=== PATIENT | female | born 1980 | race Caucasian/White ===

== ENCOUNTER 2017-05-23 11:14 | Inpatient (IN) | payer SELFPAY ==
[2017-05-23] MEDS ORDERED: LACTATED RINGERS 1,000 ML ONE (12:14)
[2017-05-23] MEDS ORDERED: XYLOCAINE 2% INFILTRATI ONE (12:43)
[2017-05-23] MEDS ORDERED: BRETHINE SUB-Q PRN (12:43)
[2017-05-23] MEDS ORDERED: BRETHINE IVP PRN (12:43)
[2017-05-23] MEDS ORDERED: ePHEDrine SULFATE IV PRN ×2 (12:43→14:00)
[2017-05-23] MEDS ORDERED: MINERAL OIL PO PRN (12:43)
[2017-05-23 12:44] LABS: Basophils % (Auto) 0.3 % (0.0-1.8); Eosinophils % (Auto) 0.4 % (0.0-4.3); Hematocrit 32.5 % (30.3-42.9); Hemoglobin 10.4 gm/dl (10.1-14.3); Mean Corpuscular HGB Conc 32 % (30-34); Mean Corpuscular Volume 76 fl (79-97); Platelet Count 258 K/mm3 (140-440); Red Blood Count 4.29 M/mm3 (3.65-5.03); Red Cell Distribution Width 18.1 % (13.2-15.2); White Blood Count 9.5 K/mm3 (4.5-11.0)
[2017-05-23] MEDS ORDERED: PITOCin/NS 20 UNIT/1000ML DRIP 20 UNITS/1,000 ML BAG IV SCH (13:00)
[2017-05-23] MEDS ORDERED: LACTATED RINGERS 1,000 ML IV ONE (13:00)
[2017-05-23] MEDS ORDERED: SUBLIMAZE IV ONE (13:00)
[2017-05-23] MEDS ORDERED: LACTATED RINGERS 1,000 ML IV SCH (13:00)
[2017-05-23 13:05] LABS: Mean Corpuscular Hemoglobin 24 pg (28-32)
--- NOTE | 2017-05-23 13:40 | History and Physical Report ---
History of Present Illness Date of examination: 05/23/17 Date of admission: 05/23/17 12:20 Chief complaint: Painful regular contractions History of present illness: 36yo here with complaint of painful regular contractions since 10am. She denies LOF. Her is complicated by Advanced Maternal Age and Gestational Diabetes: diet-controlled. Her blood sugar on admission was 65. She has not had anything to eat since this AM. GBS neg. Past History Past Surgical History: no surgical history Family/Genetic History: diabetes (aunt), other (seizure disorder (mother)) Social history: - Obstetrical History Expected Date of Delivery: 05/28/17 Actual Gestation: 39 Week(s) 2 Day(s) : 5 Para: 2 Hx # Term Pregnancies: 2 Number of Pregnancies: 0 Spontaneous Abortions: 2 Induced : 0 Number of Living Children: 2 Medications and Allergies Allergies Allergy/AdvReac Type Severity Reaction Status Date / Time No Known Allergies Allergy Unverified 12/29/13 10:55 Home Medications Medication Instructions Recorded Confirmed Last Taken Type Vit-Fe Fumar-FA [ 1 tab PO QDAY 05/23/17 05/23/17 05/22/17 09: 00 History Vitamin] 1 Active Meds: Active Medications Ephedrine Sulfate (Ephedrine Sulfate) 10 mg IV Q2M PRN PRN Reason: Hypotension Lactated Ringer's (Lactated Ringers) 1,000 mls @ 999 mls/hr IV BOLUS ONE Stop: 05/23/17 14:00 Last Admin: 05/23/17 12:52 Dose: 999 mls/hr Lactated Ringer's (Lactated Ringers) 1,000 mls @ 125 mls/hr IV DIRECT JESENIA Oxytocin/Sodium Chloride (Pitocin/Ns 20 Unit/1000ml Drip) 20 units in 1,000 mls @ 125 mls/hr IV DIRECT JESENIA Influenza Virus Vaccine Quadrival (Fluarix Quad [id number](36 Mos+) 0.5 ml IM .ONCE ONE Stop: 05/23/17 14:01 Mineral Oil (Mineral Oil) 30 ml PO QHS PRN PRN Reason: Constipation Terbutaline Sulfate (Brethine) 0.25 mg SUB-Q ONCE PRN PRN Reason: Hyperstimulation/Hypertonicity Terbutaline Sulfate (Brethine) 0.25 mg IVP ONCE PRN PRN Reason: Hyperstimulation/Hypertonicity Review of Systems All systems: negative - Vital Signs Vital signs: Vital Signs Pulse BP 86 107/67 05/23/17 11:35 05/23/17 11:35 Temp Pulse Resp BP Pulse Ox 97.5 F L 80 22 134/65 96 05/23/17 12:50 05/23/17 13:37 05/23/17 12:50 05/23/17 12:59 05/23/17 13:37 - Physical Exam Breasts: Positive: deferred Cardiovascular: Regular rate, Normal S1 Lungs: Positive: Clear to auscultation Abdomen: Positive: normal appearance, soft Genitourinary (Female): Positive: normal external genitalia, normal perenium Vulva: both: normal Vagina: Positive: normal moisture Uterus: Positive: normal size, normal contour Anus/Rectum: Positive: normal perianal skin Extremities: Positive: normal Deep Tendon Reflex Grade: Normal +2 - Obstetrical FHR: category 1 Uterine Contraction Monitor Mode: External Cervical Dilatation: 5 (per RN) Cervical Effacement Percentage: 80 (per RN) station: 0 Uterine Contraction Frequency (min): 2-6 Uterine Contraction Pattern: Regular Results Result Diagrams: 05/23/17 12:19 Abnormal lab results 05/23/17 Range/Units 12:19 MCV 76 L (79-97) fl MCH 24 L (28-32) pg RDW 18.1 H (13.2-15.2) % Seg Neutrophils % 78.8 H (40.0-70.0) % All other labs normal. Assessment and Plan A: 36yo @ 39w2d Active labor GDM AMA P: Repeat SVE prn Pitocin for augmentation Anticipate vaginal delivery
--- NOTE | 2017-05-23 13:54 | Anesthesia Consultation ---
Anesthesia Consult and Med Hx Date of service: 05/23/17 - Airway Anesthetic Teeth Evaluation: Good ROM Head & Neck: Adequate Mental/Hyoid Distance: Adequate Mallampati Class: Class II Intubation Access Assessment: Probably Good - Pre-Operative Health Status ASA Pre-Surgery Classification: ASA2 Proposed Anesthetic Plan: Epidural, Spinal - Pulmonary Hx Asthma: No COPD: No Hx Pneumonia: No - Cardiovascular System Hx Hypertension: No - Central Nervous System Hx Seizures: No Hx Psychiatric Problems: No - Endocrine Hx Renal Disease: No Hx End Stage Renal Disease: No Hx Non-Insulin Dependent Diabetes: Yes Hx Hypothyroidism: No Hx Hyperthyroidism: No - Hematic Hx Anemia: No Hx Sickle Cell Disease: No - Other Systems Hx Alcohol Use: No
[2017-05-23] MEDS ORDERED: fentaNYL-BUPIV 2 MCG/ML-0.125% 200 MCG/100 ML BAG EPIDURAL SCH (14:00)
[2017-05-23] MEDS ORDERED: PITOCin/NS 30 UNIT/500ML 30,000 MILLIUNITS/500 ML BAG IV ONE (14:00)
[2017-05-23] MEDS ORDERED: Fluarix Quad 2017-2018(36 MOS+ IM ONE (14:00)
[2017-05-23] MEDS ORDERED: NARCAN 2 MG/2 ML IV PRN (14:00)
--- NOTE | 2017-05-23 19:09 | Anesthesia Day of Surgery ---
Anesthesia Day of Surgery - Day of Surgery Patient Examined: Yes Patient H&P Reviewed: Yes Patient is NPO: No (FSP)
[2017-05-23] MEDS ORDERED: PHENERGAN PR PRN (19:25)
[2017-05-23] MEDS ORDERED: TUCKS PAD TP PRN (19:25)
[2017-05-23] MEDS ORDERED: DULCOLAX PR PRN (19:25)
[2017-05-23] MEDS ORDERED: PHENERGAN PO PRN (19:25)
[2017-05-23] MEDS ORDERED: MILK OF MAGNESIA PO PRN (19:25)
[2017-05-23] MEDS ORDERED: TYLENOL PO PRN (19:25)
[2017-05-23] MEDS ORDERED: BENADRYL PO PRN (19:25)
[2017-05-23] MEDS ORDERED: ZOFRAN IV PRN (19:25)
[2017-05-23] MEDS ORDERED: XYLOCAINE MPF 2% ONE (19:37)
[2017-05-23] MEDS ORDERED: SUBLIMAZE ONE (19:46)
--- NOTE | 2017-05-23 19:46 | Procedure Note ---
OB Delivery Note - Vaginal Delivery position: OA Intrapartum events: none, shoulder dystocia Delivery induction: none Delivery augmentation: pitocin Delivery monitor: external FHT, external uterine Route of delivery: Delivery placenta: spontaneous Delivery cord: nuchal cord (CAN x1 loose. Reduced prior to delv of head), 3 umbilical vessels Episiotomy: none Delivery laceration: none Anesthesia: epidural Delivery comments: of a viable term female at 1900. Delivery complicated by right anterior shoulder dystocia resolved by rotation to the oblique in less than 1 min. Baby cried spontaneously and was placed on maternal chest, dried and suctioned. The cord was immediately double-clamped and cut. NICU team called in the room to evaluate baby. Weight 9lbs 1oz. Apgars 8/8. Spont delv of placenta @ 1911. Minimal lochia noted. Fundus F/ML/U+1. Placenta intact. No lacerations noted. Mom and baby in stable condition.
[2017-05-23] MEDS ORDERED: SODIUM CHLORIDE FLUSH SYRINGE 10 ML IV NR (20:00)
[2017-05-23] MEDS ORDERED: MORPHINE ONE (20:10)
[2017-05-23] MEDS: NORCO 5/325 PO PRN (21:11)
[2017-05-23] MEDS: POLYCILLIN/NS 2 GM/100 ML 2 GM/100 ML BAG IV SCH (21:39)
[2017-05-23 22:20] LABS: Basophils % (Auto) 0.2 % (0.0-1.8); Eosinophils % (Auto) 0.1 % (0.0-4.3); Hemoglobin 9.6 gm/dl (10.1-14.3); Mean Corpuscular HGB Conc 32 % (30-34); Mean Corpuscular Volume 77 fl (79-97); Platelet Count 224 K/mm3 (140-440); Red Blood Count 3.93 M/mm3 (3.65-5.03); Red Cell Distribution Width 18.2 % (13.2-15.2); White Blood Count 11.5 K/mm3 (4.5-11.0)
[2017-05-23 22:21] LABS: Alanine Aminotransferase 15 units/L (7-56); Albumin 2.9 g/dL (3.9-5); Alkaline Phosphatase 149 units/L (35-129); Anion Gap 19 mmol/L; BUN/Creatinine Ratio 22; Blood Urea Nitrogen 11 mg/dL (7-17); Calcium 8.2 mg/dL (8.4-10.2); Carbon Dioxide 21 mmol/L (22-30); Glucose 109 mg/dL (65-100); Potassium 3.7 mmol/L (3.6-5.0); Sodium 131 mmol/L (137-145); Total Protein 5.9 g/dL (6.3-8.2)
[2017-05-23 22:23] LABS: Mean Corpuscular Hemoglobin 24 pg (28-32)
[2017-05-23] MEDS: MOTRIN PO SCH (23:25)
[2017-05-24] MEDS: POLYCILLIN/NS 2 GM/100 ML 2 GM/100 ML BAG IV SCH ×4 (04:00→21:55)
[2017-05-24] MEDS: MOTRIN PO SCH ×3 (05:31→21:56)
[2017-05-24 06:41] LABS: Bilirubin,Urine NEG (Negative); Blood,Urine LG (Negative); Ketones,Urine NEG (Negative); Leukocyte Esterase,Urine SM (Negative); Mucus,Urine FEW /HPF; Nitrite,Urine NEG (Negative); Protein,Urine <15 mg/dL mg/dL (Negative); Urobilinogen,Urine < 2.0 mg/dL (<2.0)
[2017-05-24 06:47] LABS: RBC,Urine > 182.0 /HPF (0.0-6.0)
[2017-05-24 07:50] LABS: Hematocrit 26.5 % (30.3-42.9); Hemoglobin 8.6 gm/dl (10.1-14.3)
--- NOTE | 2017-05-24 12:56 | Progress Note ---
Assessment and Plan A: day 1 S/P spontaneous vaginal delivery. P: Anticipate discharge home tomorrow. Subjective - Subjective Date of service: 05/24/17 Principal diagnosis: day 1 S/P spontaneous vaginal delivery Interval history: day 1 S/P spontaneous vaginal delivery. Patient is doing well. . Voiding without difficulty and ambulating well. Tolerating a regular diet without nausea or vomiting. Patient denies headache, chest pain, cough, shortness of breath, leg pain, or heavy vaginal bleeding. Patient is undecided re: control plan. Patient reports: appetite normal, voiding normally, pain well controlled, flatus , ambulating normally : doing well Objective - Vital Signs Latest vital signs: Vital Signs Temp Pulse Resp BP BP Pulse Ox 05/24/17 11:54 97.3 F L 66 20 126/75 05/24/17 10:01 97.6 F 65 18 115/70 05/24/17 08:07 97.6 F 60 18 153/81 05/24/17 06:50 98.4 F 60 111/67 96 05/24/17 05:10 83 98 05/24/17 04:35 97.4 F L 51 L 18 135/61 96 05/24/17 01:55 59 L 18 136/61 94 05/23/17 23:20 98.4 F 66 18 143/71 97 05/23/17 21:13 99.8 F H 78 18 155/78 98 05/23/17 20:43 89 96 05/23/17 20:38 85 95 05/23/17 20:35 83 147/71 05/23/17 20:33 85 94 05/23/17 20:28 88 96 05/23/17 20:23 86 96 05/23/17 20:20 88 141/68 05/23/17 20:18 85 96 05/23/17 20:13 82 97 05/23/17 20:08 85 97 05/23/17 20:05 85 151/74 05/23/17 20:03 91 H 97 05/23/17 19:58 89 96 05/23/17 19:53 93 H 97 05/23/17 19:50 91 H 151/77 05/23/17 19:48 95 H 98 05/23/17 19:43 90 98 05/23/17 19:38 93 H 98 11/17/17 19:36 104 H 160/72 17/17 19:33 95 H 98 17/17 19:29 99.5 F 1717 19:28 106 H 98 17/17 19:23 90 99 17/17 19:21 111 H 117/75 1717 19:19 96 H 81 L 1717 19:18 89 1717 19:07 106 H 107/54 1717 19:02 99 H 97 17/17 18:57 89 98 17/17 18:52 90 98 17/17 18:50 61 78 L 1717 18:47 85 98 17/17 18:42 86 97 1717 18:37 97 H 97 1717 18:36 76 134/76 1717 18:32 90 96 17/17 18:27 83 97 1717 18:22 76 98 1717 18:20 86 146/83 1717 18:17 79 96 17/17 18:12 80 97 17/17 18:07 80 149/84 98 17/17 18:02 78 98 17/17 17:57 93 H 97 17/17 17:52 77 98 17/17 17:51 83 147/68 17/17 17:47 96 H 97 17/17 17:42 81 96 17/17 17:37 89 96 17/17 17:36 73 140/69 17/17 17:32 90 97 17/17 17:27 74 97 17/17 17:22 72 96 17/17 17:21 89 152/67 17/17 17:17 88 97 17/17 17:12 77 97 17/17 17:07 76 140/75 98 17/17 17:06 98.6 F 83 22 141/89 17/17 17:02 68 98 17/17 16:57 71 98 17/17 16:52 69 158/84 98 17/17 16:47 68 98 17/17 16:42 68 97 17/17 16:37 68 97 17/17 16:36 65 152/87 17/17 16:32 71 97 17/17 16:27 66 98 17/17 16:22 66 98 17/17 16:21 73 120/78 17/17 16:17 74 97 17/17 16:12 70 97 17/17 16:07 68 97 17/17 16:06 65 133/78 17/17 16:02 71 97 17/17 15:57 78 97 17/17 15:52 70 130/87 98 17/17 15:47 71 97 17/17 15:42 74 98 17/17 15:37 74 98 17/17 15:36 76 126/82 17/17 15:32 85 97 17/17 15:27 70 97 17/17 15:22 62 97 17/17 15:21 63 142/83 17/17 15:17 67 97 05/23/17 15:12 65 97 17/17 15:07 69 97 17/17 15:06 64 138/81 17/17 15:02 68 96 05/23/17 15:00 97.6 F 20 05/23/17 14:57 66 95 05/23/17 14:52 64 98 05/23/17 14:50 65 154/84 05/23/17 14:47 64 97 05/23/17 14:42 62 98 05/23/17 14:37 59 L 98 17 14:36 60 171/84 05/23/17 14:32 62 98 17/17 14:27 65 97 05/23/17 14:22 63 155/82 97 17/17 14:17 70 97 05/23/17 14:12 67 97 05/23/17 14:07 68 97 05/23/17 14:06 68 137/82 05/23/17 14:05 69 151/87 05/23/17 14:03 75 124/67 17/17 14:02 74 95 17/17 14:01 82 89/53 17/17 13:58 75 120/71 17/17 13:57 75 117/74 95 05/23/17 13:55 67 141/80 05/23/17 13:53 63 145/79 05/23/17 13:52 64 96 05/23/17 13:51 65 137/69 05/23/17 13:49 72 149/83 05/23/17 13:47 73 123/76 96 05/23/17 13:42 78 162/78 96 05/23/17 13:38 65 149/67 05/23/17 13:37 80 96 05/23/17 13:32 75 97 05/23/17 13:27 63 96 05/23/17 13:22 70 95 05/23/17 13:17 70 96 05/23/17 13:12 63 92 05/23/17 13:10 65 88 05/23/17 13:07 68 92 05/23/17 13:02 71 96 05/23/17 12:59 68 134/65 05/23/17 12:57 71 98 05/23/17 12:56 78 94 Intake and Output 05/23/17 05/24/17 05/24/17 23:59 07:59 15:59 Intake Total 220 100 120 Output Total 500 900 Balance -280 -800 120 Intake: IV 100 100 POLYCILLIN/NS 2 GM/100 ML 100 100 2 gm In 100 ml @ 100 mls /hr IV Q6H [facility] Rx#: [id number] Oral 120 120 Output: Urine 500 900 Void 500 900 Other: Total, Intake Amount 120 120 Total, Output Amount 500 900 # Voids Void 1 - Exam Cardiovascular: Present: Regular rate, Normal S1, Normal S2 Lungs: Present: Clear to auscultation Abdomen: Present: normal appearance, soft. Absent: distention, tenderness, guarding, rigidity Uterus: Present: normal, firm, fundal height below umbilicus. Absent: bogginess , tenderness Extremities: Present: normal. Absent: tenderness, edema - Labs Labs: Abnormal lab results 05/23/17 05/23/17 05/23/17 Range/Units 12:19 13:34 21:29 WBC 11.5 H (4.5-11.0) K/mm3 Hgb 9.6 L (10.1-14.3) gm/dl Hct 30.0 L (30.3-42.9) % MCV 76 L 77 L (79-97) fl MCH 24 L 24 L (28-32) pg RDW 18.1 H 18.2 H (13.2-15.2) % Lymph % (Auto) 11.3 L (13.4-35.0) % Seg Neutrophils % 82.3 H (40.0-70.0) % Seg Neutrophils # 9.5 H (1.8-7.7) K/mm3 Sodium (137-145) mmol/L Chloride (98-107) mmol/L Carbon Dioxide (22-30) mmol/L Creatinine (0.7-1.2) mg/dL Glucose (65-100) mg/dL POC Glucose 65 L (70-105) Calcium (8.4-10.2) mg/dL Alkaline Phosphatase (35-129) units/L Total Protein (6.3-8.2) g/dL Albumin (3.9-5) g/dL Urine WBC (Auto) (0.0-6.0) /HPF 05/23/17 05/24/17 05/24/17 Range/Units 21:29 05:10 07:20 WBC (4.5-11.0) K/mm3 Hgb 8.6 L (10.1-14.3) gm/dl Hct 26.5 L (30.3-42.9) % MCV (79-97) fl MCH (28-32) pg RDW (13.2-15.2) % Lymph % (Auto) (13.4-35.0) % Seg Neutrophils % (40.0-70.0) % Seg Neutrophils # (1.8-7.7) K/mm3 Sodium 131 L (137-145) mmol/L Chloride 95.0 L (98-107) mmol/L Carbon Dioxide 21 L (22-30) mmol/L Creatinine 0.5 L (0.7-1.2) mg/dL Glucose 109 H (65-100) mg/dL POC Glucose (70-105) Calcium 8.2 L (8.4-10.2) mg/dL Alkaline Phosphatase 149 H (35-129) units/L Total Protein 5.9 L (6.3-8.2) g/dL Albumin 2.9 L (3.9-5) g/dL Urine WBC (Auto) 37.0 H (0.0-6.0) /HPF
[2017-05-24] MEDS: NORCO 5/325 PO PRN (16:03)
[2017-05-24] MEDS: FEOSOL PO SCH ×2 (16:04→21:55)
[2017-05-25] MEDS: POLYCILLIN/NS 2 GM/100 ML 2 GM/100 ML BAG IV SCH ×3 (03:59→17:06)
[2017-05-25] MEDS: MOTRIN PO SCH ×2 (03:59→17:07)
[2017-05-25] MEDS: FEOSOL PO SCH ×2 (10:16→22:23)
--- NOTE | 2017-05-25 11:12 | Progress Note ---
Assessment and Plan A: PPD 2 - stable P: Discharge pt to home Follow up as needed or in 6 weeks for PP exam Subjective - Subjective Principal diagnosis: day 2 S/P spontaneous vaginal delivery Interval history: 36yo here with complaint of painful regular contractions since 10am. She denies LOF. Her is complicated by Advanced Maternal Age and Gestational Diabetes: diet-controlled. Her blood sugar on admission was 65. She has not had anything to eat since this AM. GBS neg. Patient reports: appetite normal, voiding normally, pain well controlled, ambulating normally Jones: doing well Objective - Vital Signs Latest vital signs: Vital Signs Temp Pulse Resp BP BP Pulse Ox 05/25/17 07:26 97.8 F 63 18 136/67 98 05/25/17 05:24 97.8 F 60 18 149/78 05/25/17 04:01 143/74 05/25/17 01:16 56 L 134/69 97 05/25/17 00:40 97.7 F 56 L 18 134/69 05/24/17 22:11 129/70 05/24/17 22:00 97.8 F 61 18 129/70 05/24/17 16:28 69 145/86 97 05/24/17 14:23 142/81 05/24/17 14:08 97.7 F 79 20 144/84 05/24/17 14:07 79 144/84 97 05/24/17 11:54 97.3 F L 66 20 126/75 126/75 97 Intake and Output 05/24/17 05/25/17 05/25/17 23:59 07:59 15:59 Intake Total 320 220 Balance 320 220 Intake: IV 200 100 POLYCILLIN/NS 2 GM/100 ML 200 100 2 gm In 100 ml @ 100 mls /hr IV Q6H [facility] Rx#: [id number] Oral 120 120 Other: Total, Intake Amount 120 120 # Voids Void 1 1 - Exam Cardiovascular: Present: Regular rate, Normal S1, Normal S2, No murmurs Lungs: Present: Clear to auscultation, Normal air movement Abdomen: Present: normal appearance, soft Vulva: both: normal Uterus: Present: normal, firm, fundal height below umbilicus, other (midline) Extremities: Present: normal Deep Tendon Reflex Grade: Normal +2
--- NOTE | 2017-05-25 11:16 | Discharge Summary ---
Providers - Providers Date of Admission: 05/23/17 12:20 Date of discharge: 05/25/17 Attending physician: ALLISON MELENDEZ MD Primary care physician: [employer]PER[employer] Hospitalization Reason for admission: active labor, IUP at term Delivery: Episiotomy: none Laceration: none Other procedures: none complications: none Discharge diagnosis: IUP at term delivered [place] baby: female Condition at discharge: Stable Disposition: DC-01 TO HOME OR SELFCARE Plan - Provider Discharge Summary Activity: routine, no sex for 6 weeks, no strenuous exercise Diet: routine Instructions: routine Additional instructions: [] Smoking cessation referral if applicable(refer to patient education folder for contact #) [] Refer to [facility]'s [facility] Booklet Call your doctor immediately for: * Fever > 100.5 * Heavy vaginal bleeding ( >1 pad per hour) * Severe persistent headache * Shortness of breath * Reddened, hot, painful area to leg or breast * Drainage or odor from incision. * Keep incision clean and dry at all times and follow doctor's instructions regarding bathing/showering - Follow up plan Follow up: PRIMARY MD DEANNE [Primary Care Provider] - 7 Days
--- NOTE | 2017-05-25 14:02 | Event Note ---
Date: 05/25/17 Was notified by RN that the pt's last two BPs were elevated and she had some slightly elevated BPs earlier. She denies signs and symptoms of PIH. STAT PIH labs ordered.
[2017-05-25 15:17] LABS: Hematocrit 27.1 % (30.3-42.9); Hemoglobin 8.7 gm/dl (10.1-14.3); Mean Corpuscular HGB Conc 32 % (30-34); Mean Corpuscular Volume 78 fl (79-97); Platelet Count 227 K/mm3 (140-440); Red Blood Count 3.48 M/mm3 (3.65-5.03); Red Cell Distribution Width 18.3 % (13.2-15.2); White Blood Count 9.2 K/mm3 (4.5-11.0)
[2017-05-25 15:21] LABS: Mean Corpuscular Hemoglobin 25 pg (28-32)
[2017-05-25 15:45] LABS: Alanine Aminotransferase 13 units/L (7-56); Lactate Dehydrogenase 176 units/L (91-180)
--- NOTE | 2017-05-25 16:40 | Event Note ---
Date: 05/25/17 S: She is doing well and looking forward to going home. She denies headache, vision changes, N/V, or epigastric pain. Her bleeding is light and associated with mild cramping. O: BPs 158/86, 146/81 @ 12:00 & 12:05 respectively Labs: H/H 8.7/27.1, ptl 227, Cr 0.6, GFR >60, UA 4.0, AST/ALT 21/13, LDH 176 , UA pending A: Gestational Hypertension Anemia of puerperium P: Dr. Manrique consulted and recommended to hold off discharge and initiate Labetalol 200mg PO BID Anticipate discharge tomorrow
[2017-05-25] MEDS: NORCO 5/325 PO PRN (17:06)
[2017-05-25 17:18] LABS: Bacteria,Urine 1+ /HPF (Negative); Bilirubin,Urine NEG (Negative); Blood,Urine LG (Negative); Ketones,Urine NEG (Negative); Leukocyte Esterase,Urine TR (Negative); Mucus,Urine FEW /HPF; Nitrite,Urine NEG (Negative); Protein,Urine <15 mg/dL mg/dL (Negative); Urobilinogen,Urine < 2.0 mg/dL (<2.0)
[2017-05-25] MEDS: NORMODYNE PO SCH (22:23)
[2017-05-26] MEDS: MOTRIN PO SCH ×3 (00:14→13:01)
[2017-05-26] MEDS: FEOSOL PO SCH (10:05)
[2017-05-26] MEDS: NORMODYNE PO SCH (10:06)
--- NOTE | 2017-05-26 11:07 | Progress Note ---
Assessment and Plan A: PP Day #3 HTN Asymptomatic Anemia P: Follow Routine Orders Infed 100mg IM x 1 dose FeSo4 325mg PO BID and Labetolol 200mg PO BID called to [facility] Miky Garvey [place], [place] D/[facility] Home today RTO in One Week Subjective - Subjective Date of service: 05/26/17 Principal diagnosis: day 2 S/P spontaneous vaginal delivery Patient reports: appetite normal, voiding normally, pain well controlled, flatus , bowel movement, ambulating normally : doing well Objective - Vital Signs Latest vital signs: Vital Signs Temp Pulse Resp BP BP BP Pulse Ox 05/26/17 10:06 63 145/67 05/26/17 10:05 63 145/67 05/26/17 07:54 98.2 F 66 18 141/68 95 05/26/17 05:08 18 05/26/17 04:30 98.6 F 78 16 138/76 05/26/17 01:14 18 05/26/17 00:14 18 05/25/17 23:30 98.6 F 71 16 132/69 05/25/17 22:23 69 143/71 05/25/17 20:00 98.6 F 69 16 143/71 05/25/17 17:29 98.8 F 96 H 18 110/64 99 05/25/17 12:05 72 146/81 05/25/17 12:00 98.9 F 83 20 158/86 Intake and Output 05/25/17 05/26/17 05/26/17 22:59 06:59 14:59 Intake Total 300 200 380 Balance 300 200 380 Intake: Oral 200 380 Intake, Free Water 300 Other: Total, Intake Amount 200 380 Voiding Method Toilet # Voids 1 Void 1 # Bowel Movements 1 - Exam Breasts: Present: normal Cardiovascular: Present: Regular rate Lungs: Present: Clear to auscultation, Normal air movement Abdomen: Present: normal appearance, soft, normal bowel sounds Uterus: Present: normal, firm, fundal height below umbilicus Extremities: Present: normal - Labs Labs: Abnormal lab results 05/25/17 05/25/17 05/25/17 Range/Units 15:00 15:00 16:30 RBC 3.48 L (3.65-5.03) M/mm3 Hgb 8.7 L (10.1-14.3) gm/dl Hct 27.1 L (30.3-42.9) % MCV 78 L (79-97) fl MCH 25 L (28-32) pg RDW 18.3 H (13.2-15.2) % Creatinine 0.6 L (0.7-1.2) mg/dL Ur Specific [place] 1.002 L (1.003-1.030)
[2017-05-26] MEDS ORDERED: INFED IM ONE (13:00)
[2017-05-26 17:10] VITALS: BP 129/78
== END 2017-05-26 16:45 | disposition home or self-care (01) | DRG 775 ==
LOC: TRG 11:14 → LD 12:20 → OB 20:59
PROVIDERS: ADMIT Obstetrics & Gynecology; ATTEND Obstetrics & Gynecology
PROC: 3E0234Z Introduction of Serum, Toxoid and Vaccine into Muscle, Percutaneous Approach (ICD-10-PCS; 2017-05-23)
PROC: 10E0XZZ Delivery of Products of Conception, External Approach (ICD-10-PCS; principal; 2017-05-24)
PROC: 3E0R3BZ Introduction of Anesthetic Agent into Spinal Canal, Percutaneous Approach (ICD-10-PCS; 2017-05-24)
PROC: 00HU33Z Insertion of Infusion Device into Spinal Canal, Percutaneous Approach (ICD-10-PCS; 2017-05-24)
DX: O66.0 Obstructed labor due to shoulder dystocia (principal); O24.420 Gestational diabetes mellitus in childbirth, diet controlled; O69.81X0 Labor and delivery complicated by cord around neck, without compression, not applicable or unspecified; Z3A.39 39 weeks gestation of pregnancy; Z37.0 Single live birth; Z23 Encounter for immunization
CPT/HCPCS: 36415; 59025; 80053; 81001; 82565; 82962; 83615; 84450; 84460; 84550; 85014; 85018; 85025; 85027; 86850; 86900; 86901; 87086; 90686; 96360; 99211; G0463; J0290; J1750; J2270; J2590; J3010; J7120